=== PATIENT | male | born 1955 | race Caucasian/White ===

== ENCOUNTER 2024-01-02 10:41 | Emergency (ER) | payer MEDICARE, OTHER ==
--- NOTE | 2024-01-02 11:45 | ED Physician Documentation ---
PD HPI FOCAL NEURO - Stated complaint Stated Complaint: SLURRED SPEECH - Chief complaint Chief Complaint: Neuro - History obtained from History obtained from: Patient, Family (daughter) - History of Present Illness Timing - onset: How many weeks ago (3) Timing - duration: Weeks (3) Timing - details: Intermittant (the pt noted an episode of expressive aphasia (word salad) lasting 5-10 minutes 3 weeks ago, then with some word search and slow with some ideas/words at times. Onset 2-3 days ago of aphasia expressive again intermittently, with deliberate/slow sentence structuring and expression. right hand numb.) Severity of deficit: Moderate Weakness: No: Face, Hand, Foot Numbness: Hand, Right. No: Face, Leg, Foot Associated symptoms: Headache (mild at times. Not consistent.). No: Nausea / vomiting, Syncope, Fall, Head injury, Chest pain, Neck pain Contributing factors: negative: Anticoagulated Baseline status: positive: A&OX3, ambulatory, indep Similar symptoms before: Has not had sx before Recently seen: Not recently seen Review of Systems Constitutional: denies: Fever, Chills Eyes: denies: Loss of vision, Decreased vision Nose: denies: Rhinorrhea / runny nose, Congestion Throat: denies: Sore throat Respiratory: denies: Cough GI: denies: Nausea, Vomiting Musculoskeletal: denies: Neck pain, Extremity swelling Neurologic: reports: Numbness (right hand for few days intermittenlty.). denies: Focal weakness Psychiatric: denies: Depressed, Anxiety, Insomnia PD PAST MEDICAL HISTORY - Past Medical History Past Medical History: Yes Cardiovascular: Hypertension, High cholesterol Respiratory: None Neuro: None - Past Surgical History Past Surgical History: No - Present Medications Home Medications: Ambulatory Orders Medication Instructions Recorded Confirmed Atorvastatin Calcium [Lipitor] 40 mg PO DAILY 06/24/13 01/02/24 Lisinopril 40 mg PO DAILY 06/24/13 01/02/24 Levetiracetam [Keppra] 500 mg PO BID #10 tablet 01/02/24 Potassium Chloride 20 meq PO DAILY 01/02/24 01/02/24 dexAMETHasone [Decadron] 4 mg PO BID #10 tablet 01/02/24 hydroCHLOROthiazide [Hydrodiuril] 25 mg PO DAILY 01/02/24 01/02/24 - Allergies Allergies/Adverse Reactions: Allergies Allergy/AdvReac Type Severity Reaction Status Date / Time No Known Drug Allergies Allergy Verified 01/02/24 11:00 - Social History Does the pt smoke?: No Smoking Status: Never smoker Does the pt drink ETOH?: Yes ETOH Use: Beer Does the pt have substance abuse?: No Substance Use and Type: Marijuana - Immunizations Immunizations are current?: Yes - POLST Patient has POLST: No PD ED PE NORMAL - Vitals Vital signs reviewed: Yes - General General: Alert and oriented X 3, No acute distress, Well developed/nourished - Neck Neck: Supple, no meningeal sign, No adenopathy, No bruit - Cardiac Cardiac: RRR, No murmur - Respiratory Respiratory: No respiratory distress, Clear bilaterally - Abdomen Abdomen: Soft, Non tender - Derm Derm: Normal color, Warm and dry - Neuro Neuro: Alert and oriented X 3, direct marketing coordinator 2-12 intact, No motor deficit, No sensory deficit, Normal speech (content and words are appropriate but does seem slow and deliberate in sentence output. ) NIHSS - Level of Consciousness Level of consciousness: (0) Alert, Keenly responsive LOC Questions: (0) Answers both Q's correct LOC Commands: (0) Performs both correctly - Gaze Best Gaze: (0) Normal - Visual Visual: (0) No loss - Facial Palsy Facial Palsy: (0) Normal, symmetrical movement - Motor Arms (both separate) Motor Arm (right): (0) No drift Motor Arm (left): (0) No drift - Motor Legs (both separate) Motor Leg (right): (0) No drift Motor Leg (left): (0) No drift - Limb Ataxia Limb Ataxia: (0) Absent - Sensory Sensory: (0) Normal - Best Language Best Language: (1) [id number] - Dysarthria Dysarthria: (0) Normal - Extinction and Inattention (formally neg Extinction and inattention: (0) No abnormality - Total Score/Results Total Score/Result: 1 Results - Vitals Vitals: Vital Signs - 24 hr 01/02/24 01/02/24 01/02/24 10:53 11:00 13:00 Temperature 36.0 C L Heart Rate 87 85 89 Respiratory 14 18 15 Rate Blood Pressure 165/76 H 178/94 H 159/91 H O2 Saturation 99 99 97 01/02/24 01/02/24 17:41 18:30 Temperature Heart Rate 90 84 Respiratory 18 16 Rate Blood Pressure 185/95 H 172/89 H O2 Saturation 98 98 Oxygen O2 Source Room air - EKG (time done) 12:47 EKG releavant findings:: EKG personally interpreted by author of this note. Relevant findings are: Rate: Rate (enter#) (80) Rhythm: NSR [place]: Normal Intervals: Normal NV QRS: Normal Ischemia: Normal ST segments. No: ST elevation c/w ischemia, ST depression Compare to prior EKG: Old EKG unavailable Computer interpretation: Agree with computer - Labs Labs: Laboratory Tests 01/02/24 01/02/24 01/02/24 12:52 12:52 17:30 WBC 8.9 RBC 4.87 Hgb 15.0 Hct 44.0 MCV 90.3 MCH 30.8 MCHC 34.1 RDW 11.7 L Plt Count 231 MPV 9.4 Neut # (Auto) 6.0 Lymph # (Auto) 1.9 Dickenson # (Auto) 0.6 Eos # (Auto) 0.3 Baso # (Auto) 0.1 Absolute Nucleated RBC 0.00 Nucleated RBC % 0.0 Sodium 137 Potassium 3.7 Chloride 98 L Carbon Dioxide 31 Anion Gap 8.0 BUN 14 Creatinine 1.1 Estimated GFR (MDRD) 67 L Glucose 106 H Calcium 9.2 Magnesium 2.0 Total Bilirubin 0.7 AST 16 ALT 17 Alkaline Phosphatase 92 Total Protein 7.3 Albumin 4.2 Globulin 3.1 Albumin/Globulin Ratio 1.4 Lipase 21 Vitamin B12 347 TSH 2.62 SARS-CoV-2 (PCR) NOT DETECTED - Rads (name of study) brain MRI/MRA Relevant Findings:: Prelim report reviewed (left frontoparietal posteriorly with 3.7 cm mass with vasogenic edema and some bloood in the central of it c/w tumor. ), EMP independent interpretation of test PD Medical Decision Making - ED course Complexity details: reviewed results (Reasonable time delay to be able to get brain MRI as best test to eval the symptoms. This did show the cause of symptoms to be mass tumor. ), re-evaluated patient (no change or worsening of symptoms while here. ), considered differential (the pt had some aphasia 3 weeks ago and then again 3 days ago with now persistent sluggish sentence structure and expression. Right hand numbness. Concern for frontparietal (language/motor cortex interface). Given at least 3 days of symptoms, there was not time urgency for TPA/LVO and I opt for MRI.), d/w patient, d/w information technology consultant (Dr. Montgomery, Neurosurgery at . He states it looks most likely a primary brain tumor, likely glioblastoma. He does want to see pt promptly. They are boarding pts so cannot accept in direct transfer. He and I feel the pt is safe for discharge with prompt followup and the pt will be seen Friday/) Reviewed Lab Results: I reviewed the labs and also MRI results with pt and his daughter. I will consult NS at . They are okay with outpt followup as I conveyed my discussion with Dr. Montgomery. Rx for Keppra and Decadron. He lives in [place] and has home here on [facility]. He wanted Rx to [facility] in [facility] but was not on my pharmacy list so I printed it for them. Departure - Departure Disposition: Home, Self Care Clinical Impression: Expressive aphasia, Numbness of right hand, Brain tumor Condition: Stable Record reviewed to determine appropriate education?: Yes Follow-Up: Chris Montgomery MD [Physician No Access] - Prescriptions: dexAMETHasone [Decadron] 4 mg PO BID #10 tablet Levetiracetam [Keppra] 500 mg PO BID #10 tablet Comments: The neurosurgeon Dr. Rodriguez office will call you Friday for an appointment follow-up to be seen Friday or Friday. Call their office if you have not heard from them by Friday. The neurosurgeon did look at your images and feels it is most likely a primary brain tumor. He does asked that we prescribe a steroid and antiseizure medicines twice daily. I printed out the prescriptions for you. You did receive the first dose of them this evening afternoon. Tylenol or ibuprofen as needed for headache or pains. Moderation with your alcohol intake and try to cut down on the amount. At this time with the other medicines and new diagnosis, this honestly may not be the best time to quit drinking entirely with a subsequent concern for withdrawal etc. Just be moderate and small amounts. Forms: PCP List Discharge Date/Time: 01/02/24 18:32
[2024-01-02] MEDS ORDERED: SODIUM CHLORIDE 0.9% 1,000 ML IV STA (12:38)
[2024-01-02 12:59] LABS: BASOPHILS # (AUTO) 0.1 10^3/uL (0.0-0.1); BASOPHILS % (AUTO) 0.8 %; EOSINOPHILS # (AUTO) 0.3 10^3/uL (0.0-0.7); EOSINOPHILS % (AUTO) 2.9 %; LYMPHOCYTES # (AUTO) 1.9 10^3/uL (1.5-3.5); LYMPHOCYTES % (AUTO) 20.9 %; MEAN CORPUSCULAR HEMOGLOBIN 30.8 pg (27.0-31.0); MEAN CORPUSCULAR HGB CONC 34.1 g/dL (32.0-36.0); MEAN CORPUSCULAR VOLUME 90.3 fL (80.0-94.0); MEAN PLATELET VOLUME 9.4 fL (7.4-11.4); MONOCYTES # (AUTO) 0.6 10^3/uL (0.0-1.0); MONOCYTES % (AUTO) 6.6 %; NEUTROPHILS % (AUTO) 68.2 %; PLT - PLATELET COUNT 231 10^3/uL (130-450); RED BLOOD COUNT 4.87 10^6/uL (4.70-6.10); RED CELL DISTRIBUTION WIDTH 11.7 % (12.0-15.0); WHITE BLOOD COUNT 8.9 x10^3/uL (4.8-10.8)
[2024-01-02 13:27] LABS: THYROID STIMULATING HORMONE 2.62 uIU/mL (0.34-5.60)
[2024-01-02 13:48] LABS: ALBUMIN 4.2 g/dL (3.2-5.5); ALBUMIN/GLOBULIN RATIO 1.4 (1.0-2.2); BILIRUBIN,TOTAL 0.7 mg/dL (0.2-1.0); CALCIUM 9.2 mg/dL (8.5-10.3); CREATININE 1.1 mg/dL (0.6-1.3); POTASSIUM 3.7 mmol/L (3.5-4.5); TOTAL PROTEIN 7.3 g/dL (6.4-8.9)
[2024-01-02] MEDS ORDERED: GADOTERATE MEGLUMINE 10 MMOL/20 ML VIAL ONE (15:47)
[2024-01-02] MEDS ORDERED: GADOTERATE MEGLUMINE 10 MMOL/20 ML VIAL IVP ONE (15:55)
--- NOTE | 2024-01-02 16:31 | MRI Report ---
PROCEDURE: Brain W/WO INDICATIONS: aphasia, speech problems 3 days CONTRAST: CLARISCAN 19.0 ML TECHNIQUE: Noncontrast axial T1 spin echo, axial T2 fast spin echo, sagittal and axial FLAIR, coronal T2 fast sp in echo, axial gradient echo, axial diffusion and ADC through the brain. After the administration of contrast, axial and coronal T1 spin echo with fat saturation through the brain. COMPARISON: None. FINDINGS: Image quality: Excellent. CSF spaces: Basal cisterns are patent. No extra-axial fluid collections. Ventricles are normal in size and shape. Brain: There is a peripherally enhancing posterior left frontal parietal mass centered in the berumen-wh ite junction in deep white matter which measures 3.4 x 3.3 x 3.7 cm with associated vasogenic edema. There is very mild mass effect on the left lateral ventricle without shift. There is evidence of prod ucts of hemorrhage associated with the mass. Potential etiologies include melanoma, renal cell carcin bethany, and other metastatic lesions that 10 to hemorrhage. This can also represent other metastatic les ions or a primary [employer] neoplasm. No additional intra-axial lesions are identified. There is age-relate d volume loss. Mild small vessel ischemic change. Skull and face: Calvarial marrow is normal in signal. Orbits appear normal. Sinuses: Multiple mucous retention cysts in the left axillary sinus. Patchy bilateral anterior ethmoi d disease. Right sphenoid sinus mucus retention cyst. IMPRESSION: 1. There is a 3.7 cm maximum diameter peripherally enhancing mass in the left posterior frontoparieta l region with associated vasogenic edema. There are some products of hemorrhage associated with the m ass. Findings may potentially represent a metastatic lesion or a primary [employer] malignancy. Consider typ es of metastatic lesions that are frontal hemorrhage, including metastatic renal cell carcinoma and m elanoma, as well as other malignancies. Reviewed by: Simeon Broderick MD on 01/02/2024 4:30 PM PST Approved by: Simeon Broderick MD on 01/02/2024 4:30 PM PST Station ID: [id number]
--- NOTE | 2024-01-02 16:33 | MRI Report ---
PROCEDURE: Angio Head WO INDICATIONS: aphasia/speech problems 3 days TECHNIQUE: Noncontrast axial 3-D [id number] MR angiogram, with 3-dimensional maximum intensity projection (M IP) reformats of the internal carotid arteries and posterior circulation then performed. COMPARISON: Brain MRI with and without contrast dated 01/02/2024. FINDINGS: Image quality: Diagnostic. Anterior circulation: Intracranial internal carotid arteries demonstrate normal size and intralumina l flow signal. The flow within the paired anterior cerebral arteries is normal and symmetric. The f low within the middle cerebral arteries is normal and symmetric. The anterior communicating artery i s seen. No stenoses, occlusions, or aneurysms. Posterior circulation: Visualized portions of the vertebral arteries demonstrate normal caliber, and join to form a normal appearing basilar artery. The flow within the posterior cerebral arteries is normal and symmetric. No stenoses, occlusions, or aneurysms. IMPRESSION: No significant intracranial arterial abnormality is seen. Reviewed by: Simeon Broderick MD on 01/02/2024 4:31 PM PST Approved by: Simeon Broderick MD on 01/02/2024 4:31 PM PST Station ID: [id number]
[2024-01-02] MEDS ORDERED: DEXAMETHASONE 10 MG/ML VIAL IVP STA (16:48)
[2024-01-02 17:42] VITALS: O2SAT 98
[2024-01-02] MEDS ORDERED: levETIRAcetam 500 MG/5 ML VIAL IVP STA (17:49)
[2024-01-02 18:40] VITALS: BP 172/89
== END 2024-01-02 18:32 | disposition home or self-care (01) ==
LOC: ED 10:41
DX: D43.2 Neoplasm of uncertain behavior of brain, unspecified (principal); I10 Essential (primary) hypertension
CPT/HCPCS: 36415; 70544; 70553; 80053; 82607; 83690; 83735; 84425; 84443; 85025; 87635; 93005; 96374; 96375; 99284; A9575